=== PATIENT | female | born 1960 | race Caucasian/White ===

== ENCOUNTER → 2023-12-22 12:21 | Outpatient (CLI) | payer BC, SELFPAY ==
--- NOTE | 2023-12-22 13:01 | EKG_ITS ---
[address] [address] Test Date: 2023-12-22 Pat Name: Leona Duncan Department: [facility] Room: Gender: Female Phone Engineer: WILL : [id number] Requested By: Order Number: [id number] Reading MD: Woody Pineda MD Measurements Intervals [place] Rate: 54 P: 62 [place]: 154 QRS: 42 QRSD: 78 T: 31 QT: 422 QTc: 400 Interpretive Statements Sinus bradycardia Electronically Signed On 12-23-2023 7:30:16 PST by Woody Pineda MD
[2023-12-22 13:03] LABS: Appearance Urine UA CLEAR; Bilirubin Urine UA NEGATIVE (NEGATIVE); Color Urine UA YELLOW; Glucose Urine UA NEGATIVE (Negative); Ketones Urine UA NEGATIVE (NEGATIVE); Leukocyte Esterase Urine UA NEGATIVE (NEGATIVE); Nitrite Urine UA NEGATIVE (Negative); Occult Blood Urine UA NEGATIVE (Negative); Protein Urine UA NEGATIVE (Negative); Specific Gravity Urine UA <=1.005 (1.000-1.035); Urobilinogen Urine UA 0.2 E.U./dL (0.2)
[2023-12-22 13:06] LABS: Urine Volume 10mL (spun); pH Urine UA 5.5 (4.5-8.0)
[2023-12-22 13:07] LABS: Bacteria Urine None Seen; Culture Indicated Urine Cult Not Indicated; RBC Urine None Seen (0-5/HPF); Squamous Epithelial Cell Urine None Seen (0-5/HPF); WBC Urine None Seen (0-5/HPF)
[2023-12-22 13:13] LABS: Hemoglobin A1C% w Est Avg Glu 5.7 % (4.0-6.0)
[2023-12-22 13:53] LABS: Add Manual Diff / Slide Review NO; Basophils Absolute Auto 100 /uL (0-100); Basophils Percent Auto 1.1 % (0-2); Eosinophils Absolute Auto 400 /uL (0-450); Eosinophils Percent Auto 5.8 % (2-4); Hematocrit 37.4 % (36-46); Hemoglobin 12.5 g/dL (12.0-16.0); Lymphocytes Absolute Auto 1500 /uL (1100-4500); Mean Corpuscular HGB Conc 33.5 % (30-36); Mean Corpuscular Volume 86.6 fL (80-100); Monocytes Absolute Auto 600 /uL (0-900); Neutrophils Absolute Auto 5100 /uL (1500-7000); Neutrophils Percent Auto 66.1 % (50-75); Platelet Count 312 X10^3/uL (150-400); Red Blood Cell Count 4.31 X10^6/uL (4.0-5.2); Red Cell Distribution Width 14.3 % (11.6-14.8); White Blood Cell Count 7.7 X10^3/uL (4.5-11.0)
[2023-12-22 14:35] LABS: BUN Creatinine Ratio 14.1 (6-22); Blood Urea Nitrogen 11 mg/dL (7-17); Calcium 9.6 mg/dL (8.4-10.2); Carbon Dioxide 26 mmol/L (22-32); Chloride 95 mmol/L (98-107); Estimated Glomerular Filt Rate > 60 mL/min (>60); Glucose 79 mg/dL (80-110); HEMOLYSIS < 15 (0-50); Sodium 128 mmol/L (137-145)
== END ==
LOC: RESP 12:25
PROVIDERS: PCP Family Medicine; Referring Provider Orthopaedic Surgery; Visit Provider Orthopaedic Surgery
DX: Z01.818 Encounter for other preprocedural examination (principal); Z01.812 Encounter for preprocedural laboratory examination; R73.9 Hyperglycemia, unspecified; N39.0 Urinary tract infection, site not specified
CPT/HCPCS: 36415; 80048; 81001; 83036; 85025; 93005